=== PATIENT | female | born 1970 | race Caucasian/White ===

== ENCOUNTER 2018-12-14 08:35 | Day surgery (SDC) | payer OTHER ==
[2018-12-14 08:13] LABS: Absolute Lymphocytes (CBC) 1.5 K/uL (0.7-4.9); Absolute Monocytes 0.3 K/uL (0.1-1.3); Absolute Neutrophil 3.8 K/uL (1.8-8.0); Basophils % 0.2 % (0-1.3); Eosinophils % 1.2 % (0-4.4); Hematocrit 41.1 % (36.0-45.0); Lymphocytes % 25.8 % (15.3-44.8); MPV 9.7 fL (7.6-11.3); RBC Red Blood Cell Count 4.46 M/uL (3.86-4.86)
[2018-12-14 08:15] LABS: Specific Gravity 1.025 (1.005-1.030); Urine Appearance CLEAR; Urine Bilirubin NEGATIVE (NEG); Urine Blood NEGATIVE (NEG); Urine Color YELLOW; Urine Glucose NEGATIVE (NEG); Urine Protein NEGATIVE (NEG); Urine Specific Gravity 1.025 (1.005-1.030); Urine pH 6.5 (5.0-7.0)
[2018-12-14 08:16] LABS: Urine Microscopic Reflex NO UMIC
[~2018-12-14 08:35] MED LIST: BACITRACIN 50000 UNIT VIAL ONE; CEFAZOLIN SODIUM 1 GM/VIAL ONE; GENTAMICIN SULF 80 MG/2ML INJ ONE; Mastisol Adhesive Liq ONE; NS 0.9% VIAL 20 ML ONE; Ringers Lactate 1,000 ML IV ONE
--- NOTE | 2018-12-14 08:57 | RAD REPORT ---
EXAM DESCRIPTION: RAD - Chest Pa And Lat (2 Views) - 12/14/2018 8:29 am CLINICAL HISTORY: Preop chest, pending breast surgery COMPARISON: None. TECHNIQUE: PA and lateral views of the chest were obtained. FINDINGS: The lungs are clear. Small granuloma seen lower left lung field. Heart size is normal and central vasculature is within normal limits. No pleural effusion or pneumothorax seen. No acute [place] finding noted. No aortic abnormality. IMPRESSION: No acute cardiopulmonary process.
[2018-12-14] MEDS ORDERED: SCOPOLAMINE HYDROBROMIDE PATCH TD ONE (08:58)
[2018-12-14] MEDS ORDERED: Ringers Lactate 1,000 ML IV ONE ×2 (08:58→14:21)
[2018-12-14] MEDS ORDERED: CEFAZOLIN/SWI 1gm 1 GM/10 ML SYR ONE (08:59)
[2018-12-14] MEDS ORDERED: LIDOCAINE 2% MPF 5 ML VIAL ONE (09:11)
[2018-12-14] MEDS ORDERED: PROPOFOL 200 MG/20 ML VIAL IV ONE (09:11)
[2018-12-14] MEDS ORDERED: MIDAZOLAM HCL 2 MG/2 ML INJ ONE (09:11)
[2018-12-14] MEDS ORDERED: FENTANYL CITR 250 MCG/5 ML ONE (09:12)
[2018-12-14] MEDS ORDERED: ROCURONIUM 50 MG/5 ML VIAL IV ONE ×2 (09:12→10:29)
[2018-12-14] MEDS ORDERED: ONDANSETRON 4 MG/2 ML VIAL ONE ×3 (09:14→17:17)
[2018-12-14] MEDS ORDERED: DEXAMETHASONE 4 MG/ML VIAL ONE (09:18)
[2018-12-14] MEDS ORDERED: FENTANYL CITR 100 MCG/2 ML ONE (10:28)
[2018-12-14] MEDS ORDERED: MORPHINE 10 MG/ML VIAL ONE (10:28)
[2018-12-14] MEDS ORDERED: NEOSTIGMINE 1 MG/ML -10 ML VIAL ONE (12:08)
[2018-12-14] MEDS ORDERED: GLYCOPYRROLATE 0.2 MG/ML SYR ONE (12:08)
[2018-12-14] MEDS ORDERED: Phenylephrine HCl 10 MG/ML 1 ML VIAL ONE (12:39)
--- NOTE | 2018-12-14 13:05 | EKG ---
Test Date: 2018-12-14 Test Time: 07:52:05 Sound Effects Technician: LATOSHA MEASUREMENT RESULTS: Intervals: Rate: 78 HI: 168 QRSD: 80 QT: 380 QTc: 433 [place]: P: 49 HI: 168 QRS: 4 T: 53 INTERPRETIVE STATEMENTS: Normal sinus rhythm Normal ECG No previous ECG available for comparison Electronically Signed On 12-14-18 13:03:55 GAS DISTRIBUTION SUPERVISOR by Matthew Arshad
[2018-12-14] MEDS ORDERED: ESMOLOL HCL 10 ML IV ONE (14:53)
[2018-12-14] MEDS ORDERED: HYDROMORPHONE HCL 2 MG/ML inj ONE (14:59)
[2018-12-14] MEDS ORDERED: ONDANSETRON HCL 40 MG/20 ML VIAL ONE (15:02)
[2018-12-14] MEDS ORDERED: PROMETHAZINE 25 MG/ML VIAL ONE (15:11)
[2018-12-14] MEDS ORDERED: KETOROLAC 30 MG/ML INJ ONE (15:13)
[2018-12-14] MEDS ORDERED: CODEINE 30MG/APAP 300MG TAB ONE (16:52)
--- NOTE | 2018-12-15 02:06 | OP ---
Surgeon: Jesse Montana MD Science And Operations Officer: Miguel Angel. Preoperative Diagnosis: Breast descent, status post breast augmentation and lift. Postoperative Diagnosis: Breast descent, status post breast augmentation and lift. Procedure Performed: Explantation, lift with minimal reduction. Anesthesia: General. Procedure In Detail: After satisfactory induction of general anesthesia, chest was prepped with Dura Prep, dry sterile drapes applied in the usual manner. A 15 blade was used to make an incision around the areola, 45 mm in diameter, and a transverse curvilinear inferior incision was made. Both sides were done simultaneously. Then, the flap was elevated cephalad toward the clavicle after along the sternum. Then, the inferior incision was made. The de-epithelialized skin was then formed into a cone. Prior to that, excess tissue was taken out inferolaterally. Scalpel and electrocauter y were used for hemostasis. Wounds were irrigated with antibiotic solution and the retropectoral dis section was performed and the implants removed. The right implant was a 322, the left 500 saline ___ intact. Then, conization was performed with 2-0 PDS suture. Then, straps were elevated at 1 2 o'clock and 1:30, and 3 o'clock positions on the right breast with mirror image on the left. The s traps were then woven in and out of pectoralis major muscle, back to the base of the cone, pectoralis major, and then sewn to itself over the base of the cone with 2-0 PDS suture. This was done for the 12 o'clock and 1:30 straps. The 3 o'clock strap was sewn over the sternum at the 3 o'clock position with 2-0 Ethibond. Left side was done with mirror image and the wound was stapled shut. Dog-ears w ere marked out. Excess skin was excised. A 10 CAITLIN was brought out of the axilla and sewn in place wi th 2-0 silk and the wound was closed in layers with 3-0 Vicryl subcu and 3-0 PDS running subcuticular tied in the vertical meridian of the breast. Left side was done in an identical manner. The patien t was sat up. Site for new nipple-areolar complex was marked out. A 45-mm template was used, tissue was cored out, and then nipple was delivered and sewn with interrupted 4-0 PDS followed by 4-0 PDS r unning subcuticular. Dressings consisted of tincture of benzoin, Steri-Strips, 5x5s, fluffs, and Floyd wrap. The patient tolerated the procedure well. The amount of tissue removed from the right breast was 380, the left was 144. MARIVEL/GHADA Voice ID: [id number] Report ID: [id number]
== END 2018-12-14 17:20 | disposition home or self-care (01) ==
LOC: OR 08:35
PROVIDERS: ATTEND Specialist
PROC: 0HSWXZZ Reposition Right Nipple, External Approach (ICD-10-PCS; 2018-12-14)
PROC: 0HSXXZZ Reposition Left Nipple, External Approach (ICD-10-PCS; 2018-12-14)
PROC: 0HSV0ZZ Reposition Bilateral Breast, Open Approach (ICD-10-PCS; principal; 2018-12-14 09:00)
DX: N65.1 Disproportion of reconstructed breast (principal)
CPT/HCPCS: 36415; 71046; 81003; 81025; 85025; 88305; 93005; J0690; J1170; J1580; J2250; J2370; J2405; J2550; J2704; J2710; J3010